=== PATIENT | male | born 1990 | race Caucasian/White ===

== ENCOUNTER 2017-01-05 11:07 | Outpatient (CLI) | payer MEDICAID | END 2017-01-05 11:08 | disposition home or self-care (01) | DX: F31.13 Bipolar disorder, current episode manic without psychotic features, severe (principal); R73.01 Impaired fasting glucose; F43.10 Post-traumatic stress disorder, unspecified; Z72.51 High risk heterosexual behavior; F90.9 Attention-deficit hyperactivity disorder, unspecified type ==

== ENCOUNTER 2017-03-30 10:22 | Outpatient (CLI) | payer MEDICAID ==
--- NOTE | 2017-03-30 17:38 | XRAY Report ---
TWO VIEW CHEST: 03/30/2017 CLINICAL INDICATION: Cough. Frontal and lateral views of the chest demonstrate a normal cardiac silhouette. The lungs are clear. No effusion or pneumothorax is present. IMPRESSION: NORMAL CHEST. JOB #: [id number] EXT JOB #:[id number]
== END 2017-03-30 10:23 | disposition home or self-care (01) ==
LOC: DI.S 10:22
PROVIDERS: ATTEND Nurse Practitioner Family
DX: R05 Cough (principal)
CPT/HCPCS: 71020

== ENCOUNTER 2017-04-20 08:20 | Outpatient (CLI) | payer MEDICAID ==
[2017-04-20 18:07] LABS: CALCIUM 9.4 mg/dL (8.5-10.3); CREATININE 1.1 mg/dL (0.6-1.2); POTASSIUM 4.1 mmol/L (3.5-5.0)
== END 2017-04-20 08:21 | disposition home or self-care (01) ==
LOC: LAB.F 08:20
PROVIDERS: ATTEND Psychiatry & Neurology Psychiatry
DX: F31.4 Bipolar disorder, current episode depressed, severe, without psychotic features (principal)
CPT/HCPCS: 36415; 80048; 80178; 84443